=== PATIENT | female | born 1955 | race Caucasian/White ===

== ENCOUNTER 2017-05-02 12:21 | Inpatient (IN) | payer OTHER ==
[~2017-05-02] VITALS: Ht 160 cm; Wt 47.2 kg
[~2017-05-02 12:21] MED LIST: ACETAMINOPHEN/O1 TA3 PO; AMB5 PO; CLEOCIN HCL300 MG PO; COL100 PO; DIL100 PO; ECO81 PO; HEP5I SC; LAC PO; LEXAPRO10 MG PO; LIPI10 PO; MIRUD PO; NEU300 PO; THERAGRAN-M1 TA4 PO; TYL325 PO; VITC PO
[2017-05-02 13:57] LABS: BASOPHIL % 0.7 % (0-2); PLATELET COUNT 312 x10^3mcL (130-400); RED CELL DISTRIBUTION WIDTH 13.7 % (11.5-14.5)
[2017-05-02 14:00] LABS: CALCIUM 8.3 mg/dL (8.5-10.1); CARBON DIOXIDE 29.9 mmol/L (21-32); CREATININE SERUM 1.1 mg/dL (0.6-1.0); POTASSIUM SERUM 3.4 mmol/L (3.5-5.1)
[2017-05-02 14:04] LABS: ALBUMIN 3.4 g/dL (3.4-5.0); BILIRUBIN TOTAL 0.2 mg/dL (0.20-1.00); MAGNESIUM 2.2 mg/dL (1.8-2.4); PHOSPHOROUS 3.4 mg/dL (2.5-4.9); TOTAL PROTEIN, SERUM 7.1 g/dL (6.4-8.2)
[2017-05-02 14:15] LABS: microscopic required? YES; urine erythrocyte NEGATIVE (NEGATIVE)
[2017-05-02 14:46] LABS: FREE T4 0.7 ng/dL (0.76-1.46)
[2017-05-02 14:47] LABS: FREE THYROXINE INDEX 1.4 ug/dL (1.4-4.5); T4(THYROXINE) 4.4 ug/dL (4.7-13.3)
[2017-05-02 15:58] LABS: AMPHETAMINE QUAL UR NONE DETECTED (NEG <=1000); CHOLESTEROL/HDL RATIO 2.4
[2017-05-02 16:36] VITALS: BP 127/86
[2017-05-02 18:12] LABS: RED BLOOD CELLS 4.8 M/mm3 (4.10-5.10)
[2017-05-02 18:26] LABS: IRON 82 ug/dL (50-170); TOTAL IRON BINDING CAPACITY 318 ug/dL (250-450)
[2017-05-02 20:16] VITALS: BP 95/47
[2017-05-03 06:15] VITALS: BP 127/73
[2017-05-03 07:25] LABS: CALCIUM 8.4 mg/dL (8.5-10.1); CARBON DIOXIDE 26.5 mmol/L (21-32); CHLORIDE SERUM 105 mmol/L (98-107); CREATININE SERUM 0.8 mg/dL (0.6-1.0); GFR1 > 60 mL/min; GLUCOSE SERUM 87 mg/dL (74-106); MAGNESIUM 2.1 mg/dL (1.8-2.4); PHOSPHOROUS 3.3 mg/dL (2.5-4.9); POTASSIUM SERUM 3.8 mmol/L (3.5-5.1); SODIUM SERUM 142 mmol/L (136-145)
[2017-05-03 08:47] VITALS: BP 102/52
[2017-05-03 09:00] LABS: BASOPHIL % 0.6 % (0-2); PLATELET COUNT 292 x10^3mcL (130-400)
[2017-05-03 13:12] VITALS: BP 118/68
[2017-05-03 17:31] VITALS: BP 118/70
[2017-05-03 21:11] VITALS: BP 120/63
[2017-05-04 06:04] VITALS: BP 135/76
[2017-05-04 07:23] LABS: BASOPHIL % 0.5 % (0-2); PLATELET COUNT 305 x10^3mcL (130-400); RED CELL DISTRIBUTION WIDTH 13.9 % (11.5-14.5)
[2017-05-04 07:39] LABS: CALCIUM 8.4 mg/dL (8.5-10.1); CARBON DIOXIDE 27.5 mmol/L (21-32); CHLORIDE SERUM 104 mmol/L (98-107); CREATININE SERUM 0.8 mg/dL (0.6-1.0); GFR1 > 60 mL/min; GLUCOSE SERUM 105 mg/dL (74-106); PHOSPHOROUS 3.5 mg/dL (2.5-4.9); POTASSIUM SERUM 3.8 mmol/L (3.5-5.1); SODIUM SERUM 141 mmol/L (136-145)
[2017-05-04 08:00] VITALS: BP 139/66
[2017-05-04 08:49] VITALS: BP 135/64
[2017-05-04 09:12] LABS: T3 TOTAL 0.71 ng/mL
[2017-05-04 13:07] VITALS: BP 131/75
[2017-05-04 17:12] VITALS: BP 134/78
[2017-05-04 22:01] VITALS: BP 142/68
[2017-05-05 05:59] VITALS: BP 111/50
[2017-05-05 06:35] LABS: BASOPHIL % 0.6 % (0-2); PLATELET COUNT 279 x10^3mcL (130-400); RED CELL DISTRIBUTION WIDTH 14.5 % (11.5-14.5)
[2017-05-05 06:53] LABS: CALCIUM 8.3 mg/dL (8.5-10.1); CARBON DIOXIDE 29.1 mmol/L (21-32); CHLORIDE SERUM 108 mmol/L (98-107); CREATININE SERUM 0.8 mg/dL (0.6-1.0); GFR1 > 60 mL/min; GLUCOSE SERUM 82 mg/dL (74-106); POTASSIUM SERUM 3.9 mmol/L (3.5-5.1); SODIUM SERUM 144 mmol/L (136-145)
[2017-05-05 10:05] VITALS: BP 123/63
[2017-05-05 13:50] VITALS: BP 118/61
[2017-05-05] MEDS ORDERED: [UNRECOGNIZED DRUG - OTHER] PO (15:20)
[2017-05-05 15:42] VITALS: BP 118/61
[2017-05-05] MEDS ORDERED: DIL100 PO (16:09)
[2017-05-05] MEDS ORDERED: SYN25 PO (16:36)
[2017-05-05 17:50] VITALS: BP 158/70
== END 2017-05-05 19:05 | disposition home or self-care (01) | DRG 56 ==
LOC: ED 12:21 → DU 15:25
PROVIDERS: Emergency Medicine; Family Medicine; Family Medicine Sports Medicine
DX: G30.9 Alzheimer's disease, unspecified (principal); J69.0 Pneumonitis due to inhalation of food and vomit; G92 Toxic encephalopathy; N17.0 Acute kidney failure with tubular necrosis; F02.81 Dementia in other diseases classified elsewhere, unspecified severity, with behavioral disturbance; F33.1 Major depressive disorder, recurrent, moderate; G90.8 Other disorders of autonomic nervous system; E86.0 Dehydration; Z60.2 Problems related to living alone; I73.9 Peripheral vascular disease, unspecified; G40.909 Epilepsy, unspecified, not intractable, without status epilepticus; I10 Essential (primary) hypertension; T42.0X5A Adverse effect of hydantoin derivatives, initial encounter; E02 Subclinical iodine-deficiency hypothyroidism; I73.1 Thromboangiitis obliterans [Buerger's disease]; R82.4 Acetonuria; I34.0 Nonrheumatic mitral (valve) insufficiency; D64.9 Anemia, unspecified; F43.23 Adjustment disorder with mixed anxiety and depressed mood; E87.6 Hypokalemia; Z79.82 Long term (current) use of aspirin; Z79.899 Other long term (current) drug therapy; Y92.89 Other specified places as the place of occurrence of the external cause; Z98.891 History of uterine scar from previous surgery; Z89.422 Acquired absence of other left toe(s); Z89.421 Acquired absence of other right toe(s); Z87.891 Personal history of nicotine dependence; Z82.3 Family history of stroke; Z82.49 Family history of ischemic heart disease and other diseases of the circulatory system
CPT/HCPCS: 83880; 84439; 90658; 97110-GP; 97116-GP; 97530-GP; J1644; J1956; J2060; J3490; J7030; Q0092

== ENCOUNTER 2017-05-23 08:59 | Emergency (ER) | payer OTHER ==
[~2017-05-23] VITALS: Ht 152.4 cm; Wt 45.4 kg
[~2017-05-23 08:59] MED LIST changes: +SYN25 PO; +[UNRECOGNIZED DRUG - OTHER] PO
[2017-05-23 09:12] VITALS: Ht 152.4 cm; Wt 45.4 kg
[2017-05-23 10:43] LABS: BASOPHIL % 0.6 % (0-2); PLATELET COUNT 296 x10^3mcL (130-400)
[2017-05-23 10:52] LABS: RED CELL DISTRIBUTION WIDTH 14.9 % (11.5-14.5)
[2017-05-23 10:54] LABS: CALCIUM 9.2 mg/dL (8.5-10.1); CARBON DIOXIDE 27.6 mmol/L (21-32); CHLORIDE SERUM 102 mmol/L (98-107); CREATININE SERUM 0.8 mg/dL (0.6-1.0); GFR1 > 60 mL/min; GLUCOSE SERUM 125 mg/dL (74-106); POTASSIUM SERUM 3.9 mmol/L (3.5-5.1); SODIUM SERUM 139 mmol/L (136-145)
[2017-05-23 11:05] LABS: ALBUMIN 4.2 g/dL (3.4-5.0); ALKALINE PHOSPHATASE 207 U/L (46-116); ALT/SGPT 44 U/L (14-59); AST/SGOT 30 U/L (15-37); BILIRUBIN TOTAL 0.3 mg/dL (0.20-1.00)
[2017-05-23 11:07] LABS: FREE T4 0.83 ng/dL (0.76-1.46); FREE THYROXINE INDEX 2.2 ug/dL (1.4-4.5); TOTAL PROTEIN, SERUM 8.4 g/dL (6.4-8.2)
[2017-05-23 11:09] LABS: T3 TOTAL 0.98 ng/mL
[2017-05-23 12:31] VITALS: BP 116/74
== END 2017-05-23 13:26 | disposition home or self-care (01) ==
LOC: ED 08:59
PROVIDERS: Emergency Medicine
DX: R56.9 Unspecified convulsions (principal); E07.9 Disorder of thyroid, unspecified; R89.2 Abnormal level of other drugs, medicaments and biological substances in specimens from other organs, systems and tissues
CPT/HCPCS: 84439; G0480; J1165; J2060; J7030